=== PATIENT | female | born 1955 | race Caucasian/White ===

== ENCOUNTER → 2016-07-16 | Outpatient (CLI) | payer OTHER ==
--- NOTE | 2016-07-16 10:42 | RAD ---
EXAM DESCRIPTION: Left foot series. CLINICAL HISTORY: Left foot pain. COMPARISON: None. TECHNIQUE: Three views were submitted for evaluation. FINDINGS: No fracture, dislocation, or suspicious radiopaque foreign body is seen. Soft tissues are unremarkable. IMPRESSION: Large plantar spur noted along with vascular calcifications. No evidence of fracture. Electronically signed by: Abhijeet Cuadra MD 07/16/2016 10:40
== END ==
LOC: RAD 09:40
PROVIDERS: ATTEND Orthopaedic Surgery
DX: S90.32XA Contusion of left foot, initial encounter (principal); M77.52 Other enthesopathy of left foot and ankle

== ENCOUNTER → 2016-10-17 | Outpatient (CLI) | payer SELFPAY ==
--- NOTE | 2016-10-18 17:09 | MRI ---
EXAM DESCRIPTION: MRI left foot CLINICAL HISTORY: Forefoot pain radiating into the toes. Pain when walking. Horse stepped on the foot 4 months ago COMPARISON: None. TECHNIQUE: Multiplanar, multisequence MR images of the left foot FINDINGS: Grade 4 chondrosis along the proximal lateral joint line of the medial cuneiform at the navicular cuneiform articulation. Full-thickness chondrosis and subchondral cystic change with edema. There is a tiny focus of cystic change and edema in the adjacent dorsal navicular. Small region of marginal chondrosis, and subchondral cystic change with edema along the plantar distal medial cuneiform at its articulation with the base of the first metatarsal. Approximate measurement 10 x 5 mm. No osteochondral lesion of the metatarsal. No osteochondral lesion tarsometatarsal, metatarsophalangeal or interphalangeal Midfoot interosseous ligaments are intact No fracture of the bones the foot No tenosynovitis. Intrinsic muscles of the foot are normal. No periarticular or soft tissue solid or cystic mass IMPRESSION: Grade 4 chondrosis along the margin of the proximal medial cuneiform. Mild subchondral cystic change and edema. Tiny focus of edema in the dorsal navicular Small region of marginal cystic change and edema distal plantar aspect of the medial cuneiform at the first tarsometatarsal joint No fracture of the foot Electronically signed by: Wali Majano MD 10/18/2016 2:13 PM CDT
== END ==
LOC: MRI 12:51
PROVIDERS: ATTEND Orthopaedic Surgery
DX: S92.302D Fracture of unspecified metatarsal bone(s), left foot, subsequent encounter for fracture with routine healing (principal)

== ENCOUNTER → 2017-02-26 | Outpatient (CLI) | payer SELFPAY ==
--- NOTE | 2017-02-27 09:03 | RAD ---
EXAM DESCRIPTION: Ankle,Left 3 Views CLINICAL HISTORY: 62 years, Female, LOCALIZED PRIMARY OSTEOARTHRITIS OF THE ANKLE AND OR FOOT COMPARISON: None. TECHNIQUE: AP/lateral/oblique of the ankle of the left ankle FINDINGS: No fracture, dislocation, or disruption of the ankle mortice is present. The bones are normally mineralized and without significant degenerative disease. No soft tissue abnormalities are noted. IMPRESSION: 1. Normal left ankle three views Electronically signed by: Wali Guzman MD 02/27/2017 9:01 AM CDT
--- NOTE | 2017-02-27 09:05 | RAD ---
EXAM DESCRIPTION: Foot,Left 3 Views CLINICAL HISTORY: 62 years, Female, LOCALIZED PRIMARY OSTEOARTHRITIS OF THE ANKLE AND OR FOOT COMPARISON: July 16, 2016 TECHNIQUE: AP, lateral, and oblique views of the left foot FINDINGS: Calcaneal spurring at the plantar arch origin is noted with extensive vascular calcification. Very little degenerative change otherwise is noted. No fracture or dislocation is seen. No stress injuries are noted. IMPRESSION: Extensive vascular calcification with otherwise negative study. Electronically signed by: Wali Guzman MD 02/27/2017 9:03 AM CDT
== END | disposition home or self-care (01) ==
LOC: RAD 11:20
PROVIDERS: ATTEND Orthopaedic Surgery
DX: M19.072 Primary osteoarthritis, left ankle and foot (principal)

== ENCOUNTER → 2017-07-09 | Outpatient (CLI) | payer SELFPAY | END | disposition home or self-care (01) | LOC: LAB.O 12:48 | PROVIDERS: ATTEND Physician Assistant | DX: R05 Cough (principal) ==

== ENCOUNTER → 2018-06-23 | Outpatient (CLI) | payer MEDICARE, OTHER | LOC: GMAM 11:42 | PROVIDERS: ATTEND Family Medicine | DX: E03.9 Hypothyroidism, unspecified (principal); E55.9 Vitamin D deficiency, unspecified ==

== ENCOUNTER 2018-09-26 10:29 | Inpatient (IN) | payer MEDICARE, OTHER ==
[2018-09-26] MEDS ORDERED: SODIUM CHLORIDE 0.9% (FLUSH) 10 ML SYG IV PRN (10:55)
[2018-09-26] MEDS ORDERED: SODIUM CHLORIDE 0.9% 1000ML 1,000 ML IVS ONE (11:48)
[2018-09-26] MEDS ORDERED: ONDANSETRON INJ 4 MG/2 ML VIAL IV ONE (11:49)
[2018-09-26] MEDS ORDERED: INSULIN, REG.(HUMAN) 100 U/ML VIAL IV ONE ×2 (11:51→23:30)
--- NOTE | 2018-09-26 11:55 | ED.PDOC ---
History of Present Illness - General Chief Complaint: GI Problem Stated Complaint: vomiting and diarrhea Time Seen by Provider: 09/26/18 11:48 Information Source: patient - History of Present Illness Initial Comments: PT PRESENTS TO THE ED WITH COMPLAINT OF "STOMACH FLU". PT STATES SHE HAS HAD NAUSEA, VOMITING, AND LOOSE STOOL FOR THE PAST 4 DAYS ASSOCIATED WITH INTERMITTENT EPIGASTRIC ABDOMINAL PAIN. PT DENIES, FEVER, CHILLS. Pain Radiation: no radiation Quality: moderate, cramping, intermittent Improving Factors: nothing Worsening Factors: nothing Associated Symptoms: diarrhea, nausea/vomiting Review of Systems - Review of Systems Constitutional: Denies: chills, fever EENTM: Denies: nose congestion, throat pain Respiratory: Denies: cough, short of breath Cardiology: Denies: chest pain, palpitations Gastrointestinal/Abdominal: States: see HPI, abdominal pain, diarrhea, nausea, vomiting Genitourinary: Denies: dysuria, frequency Musculoskeletal: Denies: joint pain, joint swelling Skin: Denies: change in color, dryness Endocrine: States: no symptoms reported Hematologic/Lymphatic: States: no symptoms reported Past Medical History (General) - Patient Medical History Hx Seizures: No Hx Stroke: No Hx Dementia: No Hx Asthma: No Hx Cardiac Disorders: Yes - stent x 2 Hx Congestive Heart Failure: No Hx Pacemaker: No Hx Hypertension: Yes Hx Thyroid Disease: No Hx Diabetes: Yes Hx Gastroesophageal Reflux: Yes Hx Renal Disease: No Hx Cancer: No Hx of HIV: No Hx Hepatitis C: No Hx MRSA: No Surgical History: appendectomy - Vaccination History Hx Tetanus, Diphtheria Vaccination: No Hx Influenza Vaccination: No Hx Pneumococcal Vaccination: No - Social History Hx Tobacco Use: No Hx Chewing Tobacco Use: No Hx Alcohol Use: No Hx Substance Use: No Hx Substance Use Treatment: No Hx Depression: Yes Hx Physical Abuse: No Hx Emotional Abuse: No Hx Suspected Abuse: No - Female History Patient : No Family Medical History - Family History Mother Family History: Unknown Physical Exam - Physical Exam General Appearance: Alert, Obvious distress, Well Groomed, Well Nourished Eyes, Ears, Nose, Throat Exam: PERRL/EOMI Neck: full range of motion, supple, normal inspection Respiratory: lungs clear, normal breath sounds, no respiratory distress Cardiovascular/Chest: regular rate, rhythm, no murmur Gastrointestinal/Abdominal: normal bowel sounds, soft, tenderness - EPIGASTRIC REGION Neurologic: alert, other - SLOW TO RESPOND, ANSWERS QUESTIONS APPROPRIATELY Skin Exam: warm/dry, pallor Progress - Progress Progress: 09/26/18 13:46 PT RESTING COMFORTABLY ON RE-EVAL. LABS DIAGNOSTICS AND PLAN DISCUSSED WITH PT AND FAMILY AT BEDSIDE. - Results/Orders Results/Orders: Laboratory Tests 09/26/18 09/26/18 09/26/18 11:00 11:00 11:00 WBC 23.8 H* RBC 4.15 L Hgb 11.6 L Hct 36.0 MCV 86.7 MCH 27.9 MCHC 32.1 L RDW 13.3 Plt Count 193 MPV 9.8 Absolute Neuts (auto) Not Reportable Absolute Lymphs (auto) Not Reportable Absolute Monos (auto) Not Reportable Absolute Eos (auto) Not Reportable Neutrophils % Not Reportable Neutrophils % (Manual) 62.0 Lymphocytes % Not Reportable Lymphocytes % (Manual) 18.0 Monocytes % Not Reportable Monocytes % (Manual) 18.0 Eosinophils % Not Reportable Basophils % Not Reportable Band Neutrophils Eosinophils 2.0 Basophils Metamyelocytes Myelocytes Promyelocytes Nucleated RBCs Differential Comment Hypersegmented Polys Blast Cells Plasma Cells Other Cell Type Hypochromia Toxic Granulation Dohle Bodies Tasha Rods Platelet Estimate Normal Normal RBC Morphology Normal rbc morph Polychromasia Poikilocytosis Basophilic Stippling Anisocytosis Microcytosis Macrocytosis Spherocytes Sickle Cells Target Cells Ovalocytes Stomatocytes Helmet Cells Arriaga-Maceo Bodies [place] Rings Torres Cells Acanthocytes (Spur) Rouleaux Schistocytes RBC Morph Comment PUBS Tear Drop Cells Sodium 128 L Potassium 4.6 Chloride 92 L Carbon Dioxide 20 L Anion Gap 20.6 H BUN 44 H Creatinine 1.70 H BUN/Creatinine Ratio 25.9 H Random Glucose 576 H* Serum Osmolality 294.2 Lactic Acid Calcium 8.8 Total Bilirubin 0.9 Direct Bilirubin 0.1 Indirect Bilirubin 0.8 AST 22 ALT 15 Alkaline Phosphatase 73 Serum Total Protein 6.7 Albumin 3.3 Amylase 12 L Lipase 18 L Urine Color Urine Appearance Urine pH Ur Specific [place] Urine Protein Urine Glucose (UA) Urine Ketones Urine Blood Urine Nitrite Urine Bilirubin Urine Urobilinogen Ur Leukocyte Esterase Urine RBC Urine WBC Ur Epithelial Cells Urine Bacteria 09/26/18 09/26/18 09/26/18 11:00 12:14 13:20 WBC RBC Hgb Hct MCV MCH MCHC RDW Plt Count MPV Absolute Neuts (auto) Absolute Lymphs (auto) Absolute Monos (auto) Absolute Eos (auto) Neutrophils % Neutrophils % (Manual) Cancelled Lymphocytes % Lymphocytes % (Manual) Cancelled Monocytes % Monocytes % (Manual) Cancelled Eosinophils % Basophils % Band Neutrophils Cancelled Eosinophils Cancelled Basophils Cancelled Metamyelocytes Cancelled Myelocytes Cancelled Promyelocytes Cancelled Nucleated RBCs Cancelled Differential Comment Cancelled Hypersegmented Polys Cancelled Blast Cells Cancelled Plasma Cells Cancelled Other Cell Type Cancelled Hypochromia Cancelled Toxic Granulation Cancelled Dohle Bodies Cancelled Tasha Rods Cancelled Platelet Estimate Cancelled Normal RBC Morphology Cancelled Polychromasia Cancelled Poikilocytosis Cancelled Basophilic Stippling Cancelled Anisocytosis Cancelled Microcytosis Cancelled Macrocytosis Cancelled Spherocytes Cancelled Sickle Cells Cancelled Target Cells Cancelled Ovalocytes Cancelled Stomatocytes Cancelled Helmet Cells Cancelled Arriaga-Maceo Bodies Cancelled [place] Rings Cancelled [place] Cells Cancelled Acanthocytes (Spur) Cancelled Rouleaux Cancelled Schistocytes Cancelled RBC Morph Comment Cancelled PUBS Tear Drop Cells Cancelled Sodium Potassium Chloride Carbon Dioxide Anion Gap BUN Creatinine BUN/Creatinine Ratio Random Glucose Serum Osmolality Lactic Acid 1.6 Calcium Total Bilirubin Direct Bilirubin Indirect Bilirubin AST ALT Alkaline Phosphatase Serum Total Protein Albumin Amylase Lipase Urine Color Yellow Urine Appearance Cloudy Urine pH 5.5 Ur Specific [place] <= 1.005 Urine Protein 100 H Urine Glucose (UA) 500 H Urine Ketones 40 H Urine Blood Moderate H Urine Nitrite Negative Urine Bilirubin Negative Urine Urobilinogen 0.2 Ur Leukocyte Esterase Trace H Urine RBC 20-30 H Urine WBC 30-40 H Ur Epithelial Cells 0 Urine Bacteria 1+ - EKG/XRAY/CT EKG: Sinus, Tachy - 107, NL INTERVALS, NL AXIS, no ST T wave changes - NO OLD EK G FOR COMPARISON Departure - Departure Clinical Impression: Sepsis, UTI (urinary tract infection), Hyperglycemia, Acute kidney failure, Dehydration, Nausea and vomiting Time of Disposition: 13:48 Disposition: Discharge to Home or Self Care Condition: Poor Departure Forms: ED Discharge - Pt. Copy, Patient Portal Self Enrollment Referrals: Wali Mauricio MD [Primary Care Provider] - 1-2 Weeks Home Medications: Ambulatory Orders ALPRAZolam [Xanax] 0.5 mg PO 12/31/14 Amlodipine Besylate-Valsartan [Exforge 5-320 mg] 5 - 320 mg PO DAILY 12/31/14 Aspirin [Aspirin Childrens] 12/31/14 B-Complex Vitamins [B Complex] 1 cap PO 12/31/14 Celecoxib [Celebrex] 200 mg PO 12/31/14 Citracal Plus 12/31/14 Cymbalta 60 mg PO DAILY 12/31/14 Esomeprazole Magnesium [Nexium] 40 mg PO 12/31/14 Ezetimibe [Zetia] 10 mg PO 12/31/14 Humalog 12/31/14 Lantus 22 unit SC BID 12/31/14 Levothyroxine Sodium [Synthroid] 50 mcg PO 12/31/14 Metformin HCl [Glucophage] 500 mg PO 12/31/14 Progesterone 100 mg PO DAILY 12/31/14 Raloxifene HCl [Evista] 60 mg PO 12/31/14 Zolpidem Tartrate [Ambien] 10 mg PO 12/31/14 Critical Care Note - Critical Care Note Total Time (mins): 45 Decision To Admit - Decistion To Admit Decision to Admit Reason: Admit from ER Decision to Admit Date: 09/26/18 Decision to Admit Time: 13:49 - CASE DISCUSSED WITH VICKI ALEJANDRO NP WHO AGREES TO ADMIT
[2018-09-26] MEDS ORDERED: ACETYLCYSTEINE IVPB ONE (12:03)
[2018-09-26] MEDS ORDERED: DEXTROSE 5% IVPB ONE (12:03)
[2018-09-26] MEDS ORDERED: DEXTROSE 5% 250ML 250 ML ONE (12:30)
[2018-09-26] MEDS ORDERED: ACETYLCYSTEINE INJECTION 200 MG/ML VIAL IVPB ONE (12:30)
[2018-09-26] MEDS ORDERED: ACETAMINOPHEN 500 MG TAB PO ONE (12:59)
[2018-09-26] MEDS ORDERED: cefTRIAXone SODIUM 2 GM in SODIUM CHL 0.9% 100ML MINI-BAG 100 ML IVPB ONE (12:59)
--- NOTE | 2018-09-26 13:16 | RAD ---
EXAM DESCRIPTION: Chest,1 View CLINICAL HISTORY: 63 years Female, POSSIBLE SEPSIS COMPARISON: Chest radiograph 01/30/2009. TECHNIQUE: Single frontal view of the chest. IMPRESSION: Cardiac silhouette is normal in size. No lobar consolidation present. No pleural effusion or pneumothorax. Thoracic spondylosis. Electronically signed by: Joe Pate MD 09/26/2018 1:12 PM CDT
[2018-09-26] MEDS ORDERED: SODIUM CHL 0.9% 100ML MINI-BAG 100 ML IVPB ONE (13:49)
--- NOTE | 2018-09-26 14:26 | CT ---
Study: CT abdomen and pelvis. Indication: DIFFUSE ABD PAIN Technique: Venous phase CT imaging of the abdomen and pelvis obtained after intravenous administration of contrast. This exam was performed according to our departmental dose-optimization program, which includes automated exposure control, adjustment of the mA and/or kV according to patient size and/or use of iterative reconstruction technique. Comparison: None. Findings: Lower chest, liver, gallbladder, pancreas, spleen, adrenal glands, bladder, uterus, and bilateral adnexa unremarkable. Moderate bilateral perinephric stranding, right greater than left. There is inflation of the right renal collecting system as well. These changes can indicate pyelonephritis. Minimal dilatation of the right renal collecting system and ureter. No definite obstructing stone identified. Colonic diverticulosis. Appendix not visualized. Tiny hiatal hernia. Small bowel unremarkable. Appendix not definitively visualized. No free fluid. No free air. No pathologically enlarged lymphadenopathy. Atherosclerosis aorta. Degenerative changes of the spine noted. Impression: Findings of the bilateral kidneys concerning for pyelonephritis. Correlation with urinalysis and urine cultures recommended. Minimal dilatation of the right renal collecting system and ureter which could relate to a recently passed stone. No obstructing stone is however visualized. Additional findings as above. Electronically signed by: Brian Edwards MD 09/26/2018 2:22 PM CDT
--- NOTE | 2018-09-26 17:09 | HP ---
SUPERVISING PHYSICIAN: Wali Mauricio MD CHIEF COMPLAINT: Nausea and vomiting. HISTORY OF PRESENT ILLNESS: This is a 63-year-old patient who has had some nausea and vomiting and just feeling poorly since last Saturday. She also had some extreme weakness that just continued to worsen. She thought she had a stomach flu and at one point, she even had some mild diarrhea, but that has stopped in the last day or so. She also chills and fever with intermittent epigastric pain. She got so sick today that her brought her to the hospital. In the Emergency Room, her vital signs initially showed a temperature 102. Heart rate 105, blood pressure 171/74. Later, it did come down to 112/40. Her O2 saturation was 96% with respiratory rate 20. Lab showed WBC 23,800 with hemoglobin 11.6, hematocrit 36. Sodium 128, potassium 4.6, chloride 92, carbon dioxide 20, anion gap 20.6, BUN 44, creatinine 1.7. Random glucose was 576, lactic acid 1.6, amylase 12, lipase 18. Blood gas was unremarkable. Urinalysis showed 100 urine protein, 500 urine glucose, 40 urine ketones, moderate urine blood, trace of leukocyte esterase, 20 to 30 urine RBCs and 30 to 40 urine WBCs. Blood cultures were drawn, the patient was given fluids as well as worked up and chest x-ray shows cardiac silhouette normal in size, no lobar consolidations present, no pleural effusion or pneumothorax, thoracic spondylosis. Her abdominal and pelvis CT showed findings of bilateral kidneys concerning for pyelonephritis, minimal dilation of the right renal collecting system and ureter which could relate to a recently passed stone. No obstructing stone is visualized, however. She was also given some antinausea medicine as well as 7 units of Humalog insulin. I was called for hospital admission. PAST MEDICAL HISTORY: 1. Coronary artery disease with [address] Hernandez. 2. Hypertension. 3. Gastroesophageal reflux disease. 4. Peripheral neuropathy due to diabetes. 5. Type 1 diabetes. 6. Hypothyroidism. PAST SURGICAL HISTORY: 1. Appendectomy. 2. Coronary artery disease removal, bilateral. 3. Breast augmentation. 4. . 5. Bilateral tubal ligation. 6. Cardiac cath x4 with stent placements. 7. Trigger finger release. 8. Right acromioclavicular shoulder surgery. 9. Bilateral carpal tunnel release. OUTPATIENT MEDICATIONS: Per the EMR and awaiting verification. ALLERGIES: CODEINE, STATINS, WASP STINGS, HYDROCODONE. SOCIAL HISTORY: She lives in [place]. She is . She has one child. She denies smoking, ETOH or illicit drug use. REVIEW OF SYSTEMS: GENERAL: Positive fever, fatigue, chills. Negative for weight changes. HEENT: Negative for sinus symptoms, ear pain or sore throat. RESPIRATORY: Negative for wheezing, coughing or shortness of breath. CARDIAC: Negative for chest pain, palpitations or tachycardia. GASTROINTESTINAL: Positive for abdominal pain, nausea with mild vomiting and diarrhea, as per history of present illness. GENITOURINARY: Negative for hematuria, dysuria. MUSCULOSKELETAL: Negative for arthralgias, myalgias. SKIN: Negative for lesions or rashes. NEUROLOGIC: Positive for mild headaches and weakness. Negative for seizures. PHYSICAL EXAMINATION: VITAL SIGNS: Temperature 98.3. Heart rate 72. Blood pressure 113/63. Respiratory rate 18. O2 saturation 100% on 2 liters. GENERAL: This is a 63-year-old female patient laying in her hospital bed. She is in no acute distress although she does have noticeable chills at times. HEENT: Normocephalic, atraumatic. Pupils are equal and reactive. Oropharynx is clear. NECK: Supple without mass. RESPIRATORY: Essentially clear to auscultation bilaterally. CHEST: There is equal rise and fall of the chest with inspiration and expiration. CARDIOVASCULAR: Regular rate and rhythm. GASTROINTESTINAL: Abdomen is soft, nondistended, nontender. Bowel sounds are positive. EXTREMITIES: No cyanosis, clubbing or edema. BACK: She does have bilateral CVA tenderness. NEUROLOGIC: Awake, alert and oriented times three. LABORATORY: Labs and films are as per history of present illness. IMPRESSION: 1. Sepsis due to pyelonephritis with admitting temperature of 102, heart rate 105 and WBC of 23,800. 2. Acute kidney failure with creatinine of 1.7. Her baseline creatinine is about 1. 3. Hyperglycemia in a type 1 diabetic, most likely secondary to her infection, elevated temperature, nausea and vomiting. 4. History of coronary artery disease with cardiac stents. 5. Type 1 diabetes mellitus on insulin therapy. 6. Hypertension. 7. Hyperlipidemia. 8. Hypothyroidism on supplementation. 9. Mild anxiety and depression. PLAN: We will admit the patient to the hospital. We will continue fluids overnight. I will continue the Rocephin as she received in the Emergency Room. We will monitor cultures closely. She complained of a headache and instead of giving her her typical NSAIDs, we will hold on those for now until her kidney function improves and I will order some tramadol as well as some Xanax. She is on a proton pump inhibitor for ulcer prophylaxis, Lovenox for DVT prophylaxis. I have ordered labs for in the morning. Home medications will be restarted as soon as they are verified. We will continue to monitor the patient closely and follow as needed. #[id number] MTDD
[2018-09-26] MEDS ORDERED: ONDANSETRON INJ 4 MG/2 ML VIAL IV PRN (17:15)
[2018-09-26] MEDS ORDERED: DEXTROSE 50% 25 GM/50 ML SYG IV PRN (17:19)
[2018-09-26] MEDS ORDERED: GLUCAGON INJ 1 MG VIAL SUBCU PRN (17:19)
[2018-09-26] MEDS: SODIUM CHLORIDE 0.9% 1000ML 1,000 ML IVS PRN (21:08)
[2018-09-26] MEDS ORDERED: ALPRAZolam 0.25 MG TAB PO PRN (21:28)
[2018-09-26] MEDS ORDERED: INSULIN, REG.(HUMAN) 100 U/ML VIAL SUBCU ONE (21:54)
[2018-09-26] MEDS: SODIUM CHLORIDE 0.9% (FLUSH) 10 ML SYG IV SCH (22:05)
[2018-09-26] MEDS: ENOXAPARIN SODIUM 30 MG/0.3 ML SYG SUBCU SCH (22:05)
[2018-09-26] MEDS: ALPRAZolam 0.5 MG TAB PO SCH (22:06)
[2018-09-26] MEDS: INSULIN LISPRO 100 UNITS/ML PEN SUBCU SCH (22:07)
[2018-09-26] MEDS: IV SET AND CAP CHANGE INJ INJ SCH (22:10)
[2018-09-27] MEDS ORDERED: tiZANidine 4 MG TAB PO PRN (00:30)
[2018-09-27] MEDS ORDERED: INSULIN LISPRO 100 UNITS/ML PEN SUBCU ONE (01:28)
[2018-09-27] MEDS: PANTOPRAZOLE SODIUM IV 40 MG VIAL IV SCH (06:33)
[2018-09-27] MEDS: LEVOTHYROXINE SODIUM 0.025 MG TAB PO SCH (06:34)
[2018-09-27] MEDS: SODIUM CHLORIDE 0.9% 1000ML 1,000 ML IVS PRN ×2 (06:55→17:35)
[2018-09-27] MEDS: INSULIN LISPRO 100 UNITS/ML PEN SUBCU SCH ×4 (07:49→21:12)
[2018-09-27] MEDS ORDERED: SODIUM CHL 0.9% 50ML MIN-BAG+ 50 ML IVPB ONE ×4 (08:00→19:11)
[2018-09-27] MEDS ORDERED: cefTRIAXone SODIUM 1 GM VIAL ONE (08:01)
[2018-09-27] MEDS: amLODIPine BESYLATE 5 MG TAB PO SCH ×2 (08:33→08:39)
[2018-09-27] MEDS: cefTRIAXone SODIUM 1 GM in SODIUM CHL 0.9% 50ML MIN-BAG+ 50 ML IVPB SCH (08:33)
[2018-09-27] MEDS: VALSARTAN 80 MG TAB PO SCH ×2 (08:33→08:53)
[2018-09-27] MEDS: SODIUM CHLORIDE 0.9% (FLUSH) 10 ML SYG IV SCH ×2 (08:34→20:51)
[2018-09-27] MEDS: traMADol HCL 50 MG TAB PO PRN ×2 (08:57→11:00)
[2018-09-27] MEDS ORDERED: VALSARTAN PO SCH (09:00)
[2018-09-27] MEDS ORDERED: [UNRECOGNIZED DRUG - OTHER] PO SCH (09:00)
[2018-09-27] MEDS ORDERED: AMLODIPINE BESYLATE PO SCH (09:00)
[2018-09-27] MEDS ORDERED: MEROPENEM 500 MG VIAL IVPB ONE ×3 (10:55→19:11)
[2018-09-27] MEDS: INSULIN DEGLUDEC 14 UNIT SC SCH (10:59)
[2018-09-27] MEDS: MEROPENEM 500 MG in SODIUM CHL 0.9% 50ML MIN-BAG+ 50 ML IVPB SCH ×2 (11:01→17:57)
[2018-09-27] MEDS: ALPRAZolam 0.5 MG TAB PO SCH (20:50)
[2018-09-27] MEDS: ENOXAPARIN SODIUM 30 MG/0.3 ML SYG SUBCU SCH (20:50)
[2018-09-27] MEDS: ZOLPIDEM TARTRATE 12.5 MG PO SCH (20:51)
[2018-09-27] MEDS: ONDANSETRON INJ 4 MG/2 ML VIAL IV PRN (20:51)
[2018-09-27] MEDS: VORTIOXETINE HBR 20 MG PO SCH (21:14)
[2018-09-28] MEDS: SODIUM CHLORIDE 0.9% 1000ML 1,000 ML IVS PRN (02:53)
[2018-09-28] MEDS: MEROPENEM 500 MG in SODIUM CHL 0.9% 50ML MIN-BAG+ 50 ML IVPB SCH ×3 (02:53→18:03)
[2018-09-28] MEDS: LEVOTHYROXINE SODIUM 0.025 MG TAB PO SCH (06:09)
[2018-09-28] MEDS: PANTOPRAZOLE SODIUM IV 40 MG VIAL IV SCH (06:09)
[2018-09-28] MEDS ORDERED: MEROPENEM 500 MG VIAL IVPB ONE ×3 (07:18→20:25)
[2018-09-28] MEDS ORDERED: cefTRIAXone SODIUM 1 GM VIAL ONE (07:18)
[2018-09-28] MEDS ORDERED: SODIUM CHL 0.9% 50ML MIN-BAG+ 50 ML IVPB ONE ×4 (07:18→20:24)
[2018-09-28] MEDS: INSULIN LISPRO 100 UNITS/ML PEN SUBCU SCH ×4 (07:32→21:25)
[2018-09-28] MEDS: amLODIPine BESYLATE 5 MG TAB PO SCH (08:22)
[2018-09-28] MEDS: cefTRIAXone SODIUM 1 GM in SODIUM CHL 0.9% 50ML MIN-BAG+ 50 ML IVPB SCH (08:22)
[2018-09-28] MEDS: VALSARTAN 80 MG TAB PO SCH (08:22)
[2018-09-28] MEDS: INSULIN DEGLUDEC 14 UNIT SC SCH (08:22)
[2018-09-28] MEDS: SODIUM CHLORIDE 0.9% (FLUSH) 10 ML SYG IV SCH ×2 (08:38→21:01)
--- NOTE | 2018-09-28 09:41 | PN ---
SUPERVISING PHYSICIAN: Wali Mauricio MD DATE: 09/27/18 SUBJECTIVE: The patient is sitting up in bed, her is at the bedside. She still feels quite ill but is somewhat improved since yesterday. We discussed her lab work and that I was adding an additional antibiotic. She was also cautioned not to use her own medications as she had used several medications overnight that were her own and did not talk to nursing. She understands that she has to allow the nurses to give her pills. Otherwise ,no complaints of nausea, vomiting, diarrhea or constipation. Although she says she is not nauseated, she does state she gets "queasy" but has had no emesis. OBJECTIVE: VITAL SIGNS: Temperature 98.2, she has been afebrile other than in the Emergency Room. Heat rate 65, blood pressure 136/70, respiratory rate 18, 02 saturation 97% on 2 liters nasal cannula. Respiratory is essentially clear to auscultation bilaterally. CARDIAC:: Regular rate and rhythm. GI: Abdomen soft, nondistended, non-tender. Bilateral CVA tenderness is very mild. NEURO: She is awake, alert, and oriented x3. LABORATORY: WBC 31,200 with hemoglobin of 9.9, hematocrit 30.5. She does have 21 bands. Blood sugars have run between 212 and 648 but she has not had her long-acting insulin. She was given insulin last night and her blood sugars have slowly improved. Sodium is slightly low at 132 with a potassium of 4.1, chloride 99, carbon dioxide 23, BUN 62, creatinine 1.89, calcium 7.9, magnesium 2.3. Urine culture is pending. Preliminary blood cultures show no growth after 24 hours. All other labs and films have been reviewed via the EMR. ASSESSMENT: 1. Sepsis due to pyelonephritis with admitting temperature of 102, heart rate 105 and WBC of 23,800. Today, her WBCs are greater than 32,000, she has 21 bands, although she has been afebrile and her heart rate has been within normal limits. 2. Acute kidney failure with creatinine of 1.7 on admission. It has increased to 1.86 today. Her baseline creatinine is about 1. 3. Hyperglycemia in a type 1 diabetic, most likely secondary to her infection, elevated temperature, nausea and vomiting. 4. History of coronary artery disease with cardiac stents. 5. Type 1 diabetes mellitus on insulin therapy. 6. Hypertension. 7. Hyperlipidemia. 8. Hypothyroidism on supplementation. 9. Mild anxiety and depression. PLAN: We will continue present supportive care. She will continue with her fluids again overnight, hopefully will improve her kidney function. We will continue the Rocephin and add Merrem although she is clinically slightly improved. I cautioned her against using her own medications as well as no NSAIDS until her creatinine improves. We have restarted her Tarceva and I will recheck her labs in the morning. She will need an ultrasound of her kidneys as soon as the Apportable is available. We will continue to monitor closely and follow as needed. #[id number] [facility]
--- NOTE | 2018-09-28 13:23 | PN ---
DATE: 09/28/18 SUPERVISING PHYSICIAN: Wali Mauricio M.D. SUBJECTIVE: The patient is sitting up in her bed. Her is at the bedside. She still feels quite weak but has improved since yesterday. I discussed her lab results. She denies any shortness of breath, nausea, vomiting, diarrhea, constipation or chest pain. OBJECTIVE: VITAL SIGNS: Temperature 99.5, T max 24 hours is 100, heart rate 74, blood pressure 120/70, respiratory rate 14, O2 sat 96% on room air. RESPIRATORY: Essentially clear to auscultation bilaterally. CARDIAC: Regular rate and rhythm. GASTROINTESTINAL: Abdomen is soft, nondistended, non-tender. Bowel sounds are positive. There is no CVA tenderness at this time. NEUROLOGIC: She is awake, alert and oriented times three. LABORATORY: WBCs have improved to 17,200 with hemoglobin 9.9, hematocrit 30.2. There is no left shift on differential. Sodium is slightly low at 132, calcium 7.4. The remainder of her electrolytes are basically within normal limits. Creatinine has improved to 1.44. Blood sugars have run between 212 and 273. Urine culture is pending. Preliminary blood cultures show no growth after 24 hours. All other labs and films have been reviewed via the EMR. ASSESSMENT: 1. Sepsis due to pyelonephritis with admitting temperature of 102, heart rate 105 and WBC of 23,800. Her WBCs went up to 32,000 with 21 bands, but today it has improved. Her white count is 17,200. 2. Acute kidney failure with creatinine of 1.7 on admission. It increased to 1.86. Today it is 1.44. 3. Hyperglycemia in a type 1 diabetic, most likely secondary to her infection, elevated temperature, nausea and vomiting. 4. History of coronary artery disease with cardiac stents. 5. Type 1 diabetes mellitus on insulin therapy. 6. Hypertension. 7. Hyperlipidemia. 8. Hypothyroidism on supplementation. 9. Mild anxiety and depression. PLAN: We will continue present supportive care. I have discontinued her fluids and repeated her lab in the morning. Will continue with Rocephin and Merrem and monitor cultures as they become available. Her CT scan demonstrated that she may have passed a renal stone prior to the scan, so I will do a kidney sonogram in the morning for further assessment. I have encouraged good pulmonary hygiene. I have encouraged her to get up and walk around as much as possible as well as increase her fluids. Will continue to monitor closely and follow as needed. #[id number] MTDD
[2018-09-28] MEDS ORDERED: ALUM & MAG HYDROX-SIMETHICONE 30 ML UD ONE (13:29)
[2018-09-28] MEDS ORDERED: ALUM & MAG HYDROX-SIMETHICONE 30 ML UD PO PRN (13:33)
[2018-09-28] MEDS: ACETAMINOPHEN 325 MG TAB PO PRN (15:33)
[2018-09-28] MEDS: ENOXAPARIN SODIUM 30 MG/0.3 ML SYG SUBCU SCH (20:59)
[2018-09-28] MEDS: VORTIOXETINE HBR 20 MG PO SCH (20:59)
[2018-09-28] MEDS: ALPRAZolam 0.5 MG TAB PO SCH (21:00)
[2018-09-28] MEDS: ZOLPIDEM TARTRATE 12.5 MG PO SCH (21:01)
[2018-09-28] MEDS: DOCUSATE SODIUM 100 MG CAP PO SCH (21:10)
[2018-09-28] MEDS: SODIUM CHLORIDE 0.9% (FLUSH) 10 ML SYG IV PRN (22:57)
[2018-09-28] MEDS: ONDANSETRON INJ 4 MG/2 ML VIAL IV PRN (22:57)
[2018-09-29] MEDS: MEROPENEM 500 MG in SODIUM CHL 0.9% 50ML MIN-BAG+ 50 ML IVPB SCH (02:39)
[2018-09-29] MEDS: PANTOPRAZOLE SODIUM IV 40 MG VIAL IV SCH (06:02)
[2018-09-29] MEDS: SODIUM CHLORIDE 0.9% (FLUSH) 10 ML SYG IV PRN (06:02)
[2018-09-29] MEDS: LEVOTHYROXINE SODIUM 0.025 MG TAB PO SCH (06:03)
[2018-09-29] MEDS: INSULIN LISPRO 100 UNITS/ML PEN SUBCU SCH ×4 (06:56→21:14)
[2018-09-29] MEDS ORDERED: SODIUM CHL 0.9% 50ML MIN-BAG+ 50 ML IVPB ONE (08:21)
[2018-09-29] MEDS ORDERED: cefTRIAXone SODIUM 1 GM VIAL ONE (08:22)
[2018-09-29] MEDS: VALSARTAN 80 MG TAB PO SCH (08:30)
[2018-09-29] MEDS: DOCUSATE SODIUM 100 MG CAP PO SCH ×2 (08:31→20:41)
[2018-09-29] MEDS: amLODIPine BESYLATE 5 MG TAB PO SCH (08:32)
[2018-09-29] MEDS: INSULIN DEGLUDEC 14 UNIT SC SCH (08:33)
[2018-09-29] MEDS: SODIUM CHLORIDE 0.9% (FLUSH) 10 ML SYG IV SCH ×2 (08:34→20:42)
[2018-09-29] MEDS: cefTRIAXone SODIUM 1 GM in SODIUM CHL 0.9% 50ML MIN-BAG+ 50 ML IVPB SCH (08:34)
[2018-09-29] MEDS ORDERED: MAGNESIUM HYDROXIDE 30 ML UD PO ONE (11:02)
[2018-09-29] MEDS: levoFLOXacin 750MG IV 750 MG in PREMIX BAG 1 BAG IVPB SCH (11:34)
--- NOTE | 2018-09-29 13:44 | US ---
EXAM DESCRIPTION: Renal: Ultrasound. CLINICAL HISTORY: 63 years Female pyelo; nephrolithiasis COMPARISON: Bilateral renal arterial Doppler evaluation on the same visit. TECHNIQUE: Transcutaneous scanning: Two-dimensional and Doppler modes. FINDINGS: Right kidney measures 11.6 x 5.9 x 5.7 cm; mid-renal cortical thickness normal. . Normal echogenicity. No hydronephrosis No echogenic stones. Minimally lobulated contour of the kidney with no perinephric fluid. Normal vascularity. Proximal ureter not visualized. Left kidney measures 11.4 x 5.9 x 5.4 cm; mid-renal cortical thickness normal.. Normal echogenicity. No hydronephrosis. No echogenic stones. Minimally lobulated contour of the kidney with no perinephric fluid. Normal vascularity.. Proximal ureter not visualized. Urinary bladder was visualized. Volume not measured. Ureteral jet in the bladder seen bilaterally by Doppler. Abdominal aorta: not measured. IMPRESSION: 1. Bilateral kidneys are unremarkable. Lobulated contours are physiologic for this patient. 2. Bilateral ureteral jets seen in the urinary bladder by Doppler. Findings were not measured. Abdominal aorta was not evaluated.. Electronically signed by: Nakul Lugo MD 09/29/2018 1:40 PM CDT
[2018-09-29] MEDS: IV SET AND CAP CHANGE INJ INJ SCH (14:00)
[2018-09-29] MEDS: ONDANSETRON INJ 4 MG/2 ML VIAL IV PRN (14:22)
[2018-09-29] MEDS: ALPRAZolam 0.5 MG TAB PO SCH (20:42)
[2018-09-29] MEDS: VORTIOXETINE HBR 20 MG PO SCH (20:42)
[2018-09-29] MEDS: ZOLPIDEM TARTRATE 12.5 MG PO SCH (20:43)
[2018-09-29] MEDS ORDERED: ENOXAPARIN SODIUM 40 MG/0.4 ML SYG SUBCU SCH (21:00)
--- NOTE | 2018-09-29 21:41 | PN ---
DATE: 09/29/18 SUPERVISING PHYSICIAN: Travis Conrad M.D. SUBJECTIVE: The patient notes that she is feeling pretty good this morning. She has had a little bit of nausea but no significant pain. She has had no diarrhea. She said she has a little bit of an issue with constipation although we tried some Milk of Magnesia. She did have a renal ultrasound this morning without any significant findings. OBJECTIVE: VITAL SIGNS: Temperature 98.1, pulse 98, blood pressure 160/64, respirations 18, satting 98% on room air. Weight 63.5 kg. GENERAL: The patient is resting comfortably. Appears to be in no acute distress. She is alert. CHEST: Clear to auscultation. HEART: Regular rate and rhythm. ABDOMEN: Soft, non-tender. Positive bowel sounds. EXTREMITIES: Without any edema. NEUROLOGIC: She is alert and oriented times three. LABORATORY: White count now is down to 12,900, hemoglobin 9.5, hematocrit 29.3, platelet count 194,000. Differential shows now to be without any bands but continues with a left shift. Chemistry shows normal electrolytes with BUN 26, creatinine 1.13. Blood sugars range between 159 and 268. Magnesium 2.0. MICROBIOLOGY: Final culture results of her urine showed pansensitive Escherichia coli and she has 1 positive blood culture that showed a gram negative bacilli with final culture and sensitivity pending. RADIOLOGY: She had a renal ultrasound this morning and per radiology interpretation showed bilateral kidneys are unremarkable. Lobulated contours are physiologic for this patient. There was also note of bilateral ureteral jets seen in the urinary bladder by Doppler. Findings were not measured. The abdominal aorta was not evaluated. Please see that full report for details. ASSESSMENT: 1. Sepsis due to pyelonephritis due to Escherichia coli that is pansensitive with the patient showing initial white count of 23,800, temperature 102 with the patient showing good response to Rocephin and Meropenem, awaiting final blood culture results. 2. Gram negative bacteremia likely secondary to #1 awaiting final culture and sensitivity with the patient being transitioned to Levaquin based off the current culture results of the urine. 3. Acute kidney failure, improving with fluids. 4. Hyperglycemia in a type 1 diabetic, most likely secondary to her infection, elevated temperature, nausea and vomiting. 5. History of coronary artery disease with cardiac stents. 6. Type 1 diabetes mellitus on insulin therapy. 7. Hypertension. 8. Hyperlipidemia. 9. Hypothyroidism on supplementation. 10. Mild anxiety and depression. PLAN: Will await final culture results of the blood culture. Until then will transition the patient to appropriate antibiotic therapy based off current culture results with pansensitive Escherichia coli and therefore start her on Levaquin and renal dose as appropriate. Once we have the final blood culture results in, certainly will target antibiotic therapy as appropriate. She will need at least a 14 day course of antibiotic therapy based off current results. Will anticipate hopefully being able to discharge tomorrow, but will wait until the final culture results are back for the blood cultures. Will continue with insulin sliding scale. She continues on DVT prophylaxis. I have encouraged ambulation and continued fluid. Until we can transition back to outpatient management will need to continue to followup and treat as needed. Once she does transition to outpatient management she will need close followup with her primary care provider, Dr. Mauricio, as well as urology. We may also need to consult with Infectious Diseases with Dr. Romero, but will await final culture results to make that decision. Until then will continue to monitor and treat as needed. #[id number] [facility]
[2018-09-30] MEDS: PANTOPRAZOLE SODIUM IV 40 MG VIAL IV SCH (06:21)
[2018-09-30] MEDS: LEVOTHYROXINE SODIUM 0.025 MG TAB PO SCH (06:21)
[2018-09-30] MEDS: INSULIN LISPRO 100 UNITS/ML PEN SUBCU SCH ×2 (07:50→12:08)
[2018-09-30] MEDS: INSULIN DEGLUDEC 14 UNIT SC SCH (09:07)
[2018-09-30] MEDS: amLODIPine BESYLATE 5 MG TAB PO SCH (09:07)
[2018-09-30] MEDS: VALSARTAN 80 MG TAB PO SCH (09:08)
[2018-09-30] MEDS: SODIUM CHLORIDE 0.9% (FLUSH) 10 ML SYG IV SCH (09:09)
[2018-09-30] MEDS: DOCUSATE SODIUM 100 MG CAP PO SCH (09:09)
[2018-09-30] MEDS: ACETAMINOPHEN 325 MG TAB PO PRN (09:09)
[2018-09-30] MEDS: levoFLOXacin 750MG IV 750 MG in PREMIX BAG 1 BAG IVPB SCH (10:52)
[2018-09-30] MEDS: ONDANSETRON INJ 4 MG/2 ML VIAL IV PRN (12:05)
[2018-09-30 14:08] VITALS: BP 138/69; TEMP 98.3; O2SAT 99
--- NOTE | 2018-10-01 10:59 | DS ---
SUPERVISING PHYSICIAN: ADMISSION DIAGNOSIS: 1. Sepsis due to pyelonephritis with admitting temperature of 102, heart rate 105 and WBC of 23,800. 2. Acute kidney failure with creatinine of 1.7. Her baseline creatinine is about 1. 3. Hyperglycemia in a type 1 diabetic, most likely secondary to her infection, elevated temperature, nausea and vomiting. 4. History of coronary artery disease with cardiac stents. 5. Type 1 diabetes mellitus on insulin therapy. 6. Hypertension. 7. Hyperlipidemia. 8. Hypothyroidism on supplementation. 9. Mild anxiety and depression. DISCHARGE DIAGNOSIS: 1. Sepsis due to pyelonephritis secondary to Escherichia coli that was pansensitive with the patient showing good response to Rocephin and meropenem and transitioned to outpatient management with initially Levaquin and then home on ciprofloxacin. 2. Bacteremia secondary to #1 with same species, Escherichia coli, with pansensitivity with the patient transitioned to outpatient management with Cipro after a 24 hour period of Levaquin. Prior to that, she was on Rocephin and meropenem with the patient improving clinically. 3. Acute kidney failure secondary to #1, back to baseline levels with fluids and treatment. 4. Hyperglycemia in a type 1 diabetic, secondary to her infection, but stable prior to discharge. 5. History of coronary artery disease with cardiac stents. 6. Type 1 diabetes mellitus on insulin therapy. 7. Hypertension. 8. Hyperlipidemia. 9. Hypothyroidism on supplementation. 10. Mild anxiety and depression. REASON FOR HOSPITALIZATION: This is a 63-year-old patient who has had some nausea and vomiting and just feeling poorly since last Saturday. She also had some extreme weakness that just continued to worsen. She thought she had a stomach flu and at one point, she even had some mild diarrhea, but that has stopped in the last day or so. She also chills and fever with intermittent epigastric pain. She got so sick today that her brought her to the hospital. In the Emergency Room, her vital signs initially showed a temperature 102. Heart rate 105, blood pressure 171/74. Later, it did come down to 112/40. Her O2 saturation was 96% with respiratory rate 20. Lab showed WBC 23,800 with hemoglobin 11.6, hematocrit 36. Sodium 128, potassium 4.6, chloride 92, carbon dioxide 20, anion gap 20.6, BUN 44, creatinine 1.7. Random glucose was 576, lactic acid 1.6, amylase 12, lipase 18. Blood gas was unremarkable. Urinalysis showed 100 urine protein, 500 urine glucose, 40 urine ketones, moderate urine blood, trace of leukocyte esterase, 20 to 30 urine RBCs and 30 to 40 urine WBCs. Blood cultures were drawn, the patient was given fluids as well as worked up and chest x-ray shows cardiac silhouette normal in size, no lobar consolidations present, no pleural effusion or pneumothorax, thoracic spondylosis. Her abdominal and pelvis CT showed findings of bilateral kidneys concerning for pyelonephritis, minimal dilation of the right renal collecting system and ureter which could relate to a recently passed stone. No obstructing stone is visualized, however. She was also given some antinausea medicine as well as 7 units of Humalog insulin. I was called for hospital admission. LABORATORY: White count 28,300 on admission. It did go up to a maximum of 31,200, but prior to discharge had normalized to 10,800. She did have a left shift and actually had 21% bands that resolved and was returning to baseline levels. Hemoglobin and hematocrit were stable. Discharge hemoglobin 9.5, hematocrit 29.0. Platelet count 214,000. Blood gas analysis was within normal limits on admission. Chemistry on admission showed sodium 129, blood sugar 576. It did go up to a maximum of 645 with sodium correcting to 135, potassium 4.6, carbon dioxide 20, BUN 44, creatinine 1.70. Liver functions all within normal limits. Lipase normal. After initiation of treatment with sliding scale, blood sugars were better controlled. Electrolytes with potassium 4.2, sodium 132 and normalized prior to discharge with sodium 140, potassium 3.9. Blood sugars were ranging between 162 and 206 prior to discharge. Magnesium 2.0. Urinalysis on admission showed 100 protein, 500 glucose, 40 ketones, mild amount of blood, trace leukocyte esterase with RBCS 20 to 30, WBCs 30 to 40, 1+ bacteria. Urinalysis after catheter was placed showed 100 protein, small amount of blood, negative ketones, negative glucose and microscopic revealed 5 to 10 RBCs, 10 to 20 WBCs, 2+ bacteria, 5 to 10 epithelials. MICROBIOLOGY: Final urine culture showed pansensitive E. coli. She had blood cultures that were positive in both aerobic and anaerobic bottles that was E. coli and pansensitive similar to the urine culture. She had two other sets of blood cultures that were negative. RADIOLOGY: In the Emergency Room prior to admission, she did have a abdominopelvic CT without contrast. Findings were concerning for bilateral pyelonephritis. There was an ultrasound of the kidneys completed as well after admission and per radiologic interpretation showed bilateral kidneys to be unremarkable. Lobulated contours are physiologic for this patient. Bilateral ureteral jets seen in the urinary bladder by Doppler. Findings were not measured. Please see those reports for details. HOSPITAL COURSE: Ms. Mijares was admitted for bilateral pyelonephritis secondary to E. coli that was pansensitive. She was started on Rocephin and meropenem. Once culture results came back with pansensitive E. coli, she was transitioned to Levaquin and prior to discharge, changed to oral ciprofloxacin. She responded well clinically to treatment and was no longer having fever within 72 hours of discharge. She had no complaints and was clinically stable enough to be discharged home. PLAN: Ms. Mijares was discharged on 09/30/18 with instructions to continue with outpatient management on antibiotics of ciprofloxacin for at least 14 days and followup with Dr. Mauricio as directed within the next week. She was to encourage fluids to prevent dehydration and resume all other medications as prior to hospitalization. She was given warnings to return to the hospital should she have any return of symptoms including fever or increasing pain. Diet at discharge was diabetic diet and to monitor blood sugars at least 3 times a day with fingersticks. Activity to increase as tolerated. She does have an appointment on 10/07/[address] at [address] Mauricio. Medications prescribed at discharge included ciprofloxacin 500 mg twice daily, #28. She will need a repeat urinalysis at followup and possible consideration for urology consultation at some point if needed given that she had bilateral pyelonephritis. At followup, if the patient is not showing expected clinical response with Dr. Romero to fully followup on completion of treatment for gram negative bacteremia secondary to pansensitive E. coli. DISCHARGE CONDITION: Stable and improving. DISPOSITION: She was discharged to care of family members. #[id number] [facility]
== END 2018-09-30 14:05 | disposition home or self-care (01) | DRG 872 ==
LOC: ER 10:29 → MS 17:07
PROVIDERS: ADMIT Nurse Practitioner Acute Care; ATTEND Nurse Practitioner Family
PROC: BW211ZZ Computerized Tomography (CT Scan) of Abdomen and Pelvis using Low Osmolar Contrast (ICD-10-PCS; principal; 2018-09-26)
DX: A41.51 Sepsis due to Escherichia coli [E. coli] (principal); N12 Tubulo-interstitial nephritis, not specified as acute or chronic; N17.9 Acute kidney failure, unspecified; E10.65 Type 1 diabetes mellitus with hyperglycemia; R51 Headache; K59.00 Constipation, unspecified; I25.10 Atherosclerotic heart disease of native coronary artery without angina pectoris; I10 Essential (primary) hypertension; E78.5 Hyperlipidemia, unspecified; E03.9 Hypothyroidism, unspecified; F41.9 Anxiety disorder, unspecified; F32.9 Major depressive disorder, single episode, unspecified; K21.9 Gastro-esophageal reflux disease without esophagitis; E10.43 Type 1 diabetes mellitus with diabetic autonomic (poly)neuropathy; G62.9 Polyneuropathy, unspecified; Z79.4 Long term (current) use of insulin; Z95.5 Presence of coronary angioplasty implant and graft; Z88.5 Allergy status to narcotic agent; Z88.8 Allergy status to other drugs, medicaments and biological substances; Z79.899 Other long term (current) drug therapy

== ENCOUNTER 2018-10-13 10:44 | Emergency (ER) | payer MEDICARE, OTHER ==
[2018-10-13] MEDS ORDERED: SODIUM CHLORIDE 0.9% 1000ML 1,000 ML IVS ONE (11:11)
--- NOTE | 2018-10-13 11:29 | RAD ---
EXAM DESCRIPTION: Chest,1 View CLINICAL HISTORY: 63 years Female, orthostasis COMPARISON: Previous study September 26, 2018 TECHNIQUE: AP portable chest. FINDINGS: Heart size is prominent with normal pulmonary vascularity. No consolidating infiltrate. No pulmonary mass or worrisome nodule. No pneumothorax or pleural effusion. Bones are unremarkable. IMPRESSION: No acute process is identified in the chest. Electronically signed by: Jassi Manning MD 10/13/2018 11:27 AM CDT
[2018-10-13] MEDS ORDERED: MAGNESIUM SULFATE PREMIX 2GM 2 GM in PREMIX BAG 1 BAG IVPB ONE (12:20)
[2018-10-13] MEDS ORDERED: MAGNESIUM SULFATE PREMIX 2GM 50 ML IVPB ONE (12:40)
--- NOTE | 2018-10-13 13:29 | ED.PDOC ---
History of Present Illness - General Chief Complaint: General Stated Complaint: dizziness, nausea, headache Time Seen by Provider: 10/13/18 10:49 Source: patient Exam Limitations: no limitations - History of Present Illness Initial Comments: the patient is a 63-year-old female presenting to emergency room secondary to a feeling of weakness and dizziness and fatigue this morning after she got up. The patient was recently in the hospital for urosepsis. She has been out of the hospital for about a week and she just completed her antibiotics yesterday. No nausea or vomiting. No syncope. No altered mental status. No headache. No chest pain. No shortness of breath. No abdominal pain. No new urinary symptoms. The patient has recently restartedher Exforge that she had already been off of for about 3 months. Timing/Duration: 24 hours Severity: mild Improving Factors: nothing Worsening Factors: nothing Associated Symptoms: denies symptoms Allergies/Adverse Reactions: Allergies Codeine Allergy (Verified 09/26/18 11:39) Home Medications: Ambulatory Orders ALPRAZolam [Xanax] 0.5 mg PO PRN PRN 12/31/14 B-Complex Vitamins [B Complex] 1 cap PO DAILY 12/31/14 Levothyroxine Sodium [Synthroid] 50 mcg PO DAILY 12/31/14 Raloxifene HCl [Evista] 60 mg PO DAILY 12/31/14 Insulin Aspart [Novolog Flexpen] 100 unit SC PRN PRN 09/26/18 Insulin Degludec [Tresiba] 24 unit SC DAILY 09/26/18 Tizanidine HCl [Zanaflex] 8 mg PO BEDTIME PRN 09/26/18 Vortioxetine HBr [Trintellix] 20 mg PO BEDTIME 09/26/18 Zolpidem Tartrate [Ambien Cr] 12.5 mg PO BEDTIME 09/26/18 Exforge 10-320 mg 1 tablet PO DAILY 10/13/18 Review of Systems - Review of Systems Constitutional: States: malaise EENTM: States: no symptoms reported Respiratory: States: no symptoms reported Cardiology: States: no symptoms reported Gastrointestinal/Abdominal: States: no symptoms reported Genitourinary: States: no symptoms reported Musculoskeletal: States: no symptoms reported Skin: States: no symptoms reported Neurological: States: see HPI Endocrine: States: no symptoms reported Hematologic/Lymphatic: States: no symptoms reported All other Systems: No Change from Baseline Past Medical History (General) - Patient Medical History Hx Seizures: No Hx Stroke: No Hx Dementia: No Hx Asthma: No Hx of COPD: No Hx Cardiac Disorders: Yes - stent x 2 Hx Congestive Heart Failure: No Hx Pacemaker: No Hx Hypertension: Yes Hx Thyroid Disease: Yes Hx Diabetes: Yes Hx Gastroesophageal Reflux: Yes Hx Renal Disease: No Hx Cancer: No Hx of HIV: No Hx Hepatitis C: No Hx MRSA: No Surgical History: appendectomy, other - Vaccination History Hx Tetanus, Diphtheria Vaccination: Yes Hx Influenza Vaccination: Yes Hx Pneumococcal Vaccination: Yes - 2018 - Social History Hx Tobacco Use: No Hx Chewing Tobacco Use: No Hx Alcohol Use: No Hx Substance Use: No Hx Substance Use Treatment: No Hx Depression: Yes Hx Physical Abuse: No Hx Emotional Abuse: No Hx Suspected Abuse: No - Female History Patient : No Family Medical History - Family History Mother Family History: Unknown Living Status: Age at (years of age): 54 Cause of : Squamous Cell Carcinoma 1981 Hx Family Hypertension: Yes Hx Family Cancer: Yes Physical Exam - Physical Exam General Appearance: Alert, Comfortable, No apparent distress Eye Exam: bilateral normal Ears, Nose, Throat: hearing grossly normal, normal ENT inspection Neck: full range of motion, supple Respiratory: lungs clear, normal breath sounds, no respiratory distress, no accessory muscle use Cardiovascular/Chest: normal peripheral pulses, regular rate, rhythm, no edema Peripheral Pulses: radial,right: 2+, radial,left: 2+, dorsalis pedis,right: 2+, dorsalis pedis,left: 2+ Gastrointestinal/Abdominal: non tender, soft Rectal Exam: deferred Back Exam: no CVA tenderness, no vertebral tenderness Extremity: normal range of motion, non-tender, normal inspection, no pedal edema, normal capillary refill Neurologic: research assistant II-XII nml as tested, alert, normal mood/affect, oriented x 3 Skin Exam: normal color Comments: Vital Signs - 24 hr 10/13/18 10/13/18 10/13/18 10:57 10:58 10:59 Temperature 95.8 F L Pulse Rate [ 48 L 53 L 53 L left brachial] Respiratory 16 18 18 Rate Blood Pressure 106/49 96/45 96/45 [left brachial] O2 Sat by Pulse 99 100 100 Oximetry 04/10/13/18 10/13/18 11:00 11:07 12:00 Temperature 95.8 F L Pulse Rate [ 51 L 53 L 60 left brachial] Respiratory 18 16 14 Rate Blood Pressure 80/41 101/51 109/39 [left brachial] O2 Sat by Pulse 100 99 93 L Oximetry 10/13/18 12:30 Temperature Pulse Rate [ 61 left brachial] Respiratory 16 Rate Blood Pressure 110/54 [left brachial] O2 Sat by Pulse 93 L Oximetry Progress - Progress Progress: 10/13/18 13:32 the patient is a 63-year-old female presenting with symptoms that are most consistent with orthostasis. The patient has significantly tilted positive here. She did receive a liter of IV fluids. She also received a dose of magnesium for hypomagnesemia. The patient does have some mild bradycardia that does not compensate for her blood pressure drop when standing. She is on Exforge at this time. For now I'm going to have her hold the medication and record her blood pressures 3 times daily for the next few days. She needs to contact her primary care doctor towards the end of the week to see if she needs to be restarted on some form of a blood pressure medication. At this point given the severity of her symptoms, the risk outweighs the benefit of this medication at this time. The patient does have very mild hypothermia which may be a chronic issue for her. This needs to be followed up with her primary care doctor, as does the mild sinus bradycardia. Thyroid function appears to be fairly normal at this time based on the TSH. No clinical evidence of sepsis at this time. Follow-up with primary care doctor later this week. ER warnings were given. - Results/Orders Results/Orders: Vital Signs - 24 hr 10/13/18 10/13/18 10/13/18 10:57 10:58 10:59 Temperature 95.8 F L Pulse Rate [ 48 L 53 L 53 L left brachial] Respiratory 16 18 18 Rate Blood Pressure 106/49 96/45 96/45 [left brachial] O2 Sat by Pulse 99 100 100 Oximetry 10/13/18 10/13/18 10/13/18 11:00 11:07 12:00 Temperature 95.8 F L Pulse Rate [ 51 L 53 L 60 left brachial] Respiratory 18 16 14 Rate Blood Pressure 80/41 101/51 109/39 [left brachial] O2 Sat by Pulse 100 99 93 L Oximetry 10/13/18 12:30 Temperature Pulse Rate [ 61 left brachial] Respiratory 16 Rate Blood Pressure 110/54 [left brachial] O2 Sat by Pulse 93 L Oximetry 10/13/18 10:56 Vital Signs-Tilt PRN tilt positive by blood pressure drop of 25 points down to 80/40 with a failure of heart rateto rise significantly. 10/13/18 11:15 EKG STAT sinus bradycardia at 51 bpm with occasional PVCs. There is a Q-wave in lead 3. No definitive ST segment or T-wave changes consistent with acute ischemia. Normal QT interval. Normal axis. 10/13/18 Lunch 2000 Calorie ADA Diet Laboratory Results - last 24 hr 10/13/18 10/13/18 10/13/18 11:17 11:50 11:50 WBC 7.9 RBC 3.71 L Hgb 10.4 L Hct 32.0 L MCV 86.2 MCH 28.0 MCHC 32.6 L RDW 14.3 Plt Count 320 MPV 8.3 Absolute Neuts (auto) 5.40 Absolute Lymphs (auto) 1.50 Absolute Monos (auto) 0.70 Absolute Eos (auto) 0.20 Absolute Basos (auto) 0.20 H Neutrophils % 68.0 Lymphocytes % 19.0 L Monocytes % 8.5 Eosinophils % 2.1 Basophils % 2.4 H Sodium 135 Potassium 3.7 Chloride 100 L Carbon Dioxide 24 Anion Gap 14.7 BUN 16 Creatinine 1.21 BUN/Creatinine Ratio 13.2 POC Glucose Random Glucose 83 Serum Osmolality 270.4 L Lactic Acid Calcium 9.7 Magnesium 1.6 L Total Bilirubin 0.4 AST 28 ALT 20 Alkaline Phosphatase 36 L Creatine Kinase 41 CK-MB (CK-2) 1.0 CK-MB (CK-2) % Not Reportable Troponin I < 0.02 B-Natriuretic Peptide 34.2 Serum Total Protein 6.8 Albumin 3.6 Globulin 3.2 Albumin/Globulin Ratio 1.1 TSH 1.91 Urine Color Yellow Urine Appearance Clear Urine pH 5.0 Ur Specific [place] 1.020 Urine Protein Negative Urine Glucose (UA) Negative Urine Ketones Negative Urine Blood Negative Urine Nitrite Negative Urine Bilirubin Negative Urine Urobilinogen 0.2 Ur Leukocyte Esterase Trace H Urine RBC 3-5 H Urine WBC 3-5 H Ur Epithelial Cells 1-3 Amorphous Sediment 2+ Urine Bacteria 1+ Hyaline Casts 0-1 Urine Mucus Moderate 10/13/18 10/13/18 11:50 13:02 WBC RBC Hgb Hct MCV MCH MCHC RDW Plt Count MPV Absolute Neuts (auto) Absolute Lymphs (auto) Absolute Monos (auto) Absolute Eos (auto) Absolute Basos (auto) Neutrophils % Lymphocytes % Monocytes % Eosinophils % Basophils % Sodium Potassium Chloride Carbon Dioxide Anion Gap BUN Creatinine BUN/Creatinine Ratio POC Glucose 59 L Random Glucose Serum Osmolality Lactic Acid 1.5 Calcium Magnesium Total Bilirubin AST ALT Alkaline Phosphatase Creatine Kinase CK-MB (CK-2) CK-MB (CK-2) % Troponin I B-Natriuretic Peptide Serum Total Protein Albumin Globulin Albumin/Globulin Ratio TSH Urine Color Urine Appearance Urine pH Ur Specific [place] Urine Protein Urine Glucose (UA) Urine Ketones Urine Blood Urine Nitrite Urine Bilirubin Urine Urobilinogen Ur Leukocyte Esterase Urine RBC Urine WBC Ur Epithelial Cells Amorphous Sediment Urine Bacteria Hyaline Casts Urine Mucus Departure - Departure Clinical Impression: Orthostasis, Sinus bradycardia, Hypothermia not due to cold exposure, Hypomagnesemia Disposition: Discharge to Home or Self Care Condition: Fair Departure Forms: ED Discharge - Pt. Copy, Patient Portal Self Enrollment Instructions: Orthostatic Hypotension (DC) Diet: diabetic diet Activity: increase activity as tolerated Referrals: Wali Mauricio MD [Primary Care Provider] - 1-2 Weeks Home Medications: Ambulatory Orders ALPRAZolam [Xanax] 0.5 mg PO PRN PRN 12/31/14 B-Complex Vitamins [B Complex] 1 cap PO DAILY 12/31/14 Levothyroxine Sodium [Synthroid] 50 mcg PO DAILY 12/31/14 Raloxifene HCl [Evista] 60 mg PO DAILY 12/31/14 Insulin Aspart [Novolog Flexpen] 100 unit SC PRN PRN 09/26/18 Insulin Degludec [Tresiba] 24 unit SC DAILY 09/26/18 Tizanidine HCl [Zanaflex] 8 mg PO BEDTIME PRN 09/26/18 Vortioxetine HBr [Trintellix] 20 mg PO BEDTIME 09/26/18 Zolpidem Tartrate [Ambien Cr] 12.5 mg PO BEDTIME 09/26/18 Exforge 10-320 mg 1 tablet PO DAILY 10/13/18 Additional Instructions: the patient is a 63-year-old female presenting with symptoms that are most consistent with orthostasis. The patient has significantly tilted positive here. She did receive a liter of IV fluids. She also received a dose of magnesium for hypomagnesemia. The patient does have some mild bradycardia that does not compensate for her blood pressure drop when standing. She is on Exforge at this time. For now I'm going to have her hold the medication and record her blood pressures 3 times daily for the next few days. She needs to contact her primary care doctor towards the end of the week to see if she needs to be restarted on some form of a blood pressure medication. At this point given the severity of her symptoms, the risk outweighs the benefit of this medication at this time. The patient does have very mild hypothermia which may be a chronic issue for her. This needs to be followed up with her primary care doctor, as does the mild sinus bradycardia. Thyroid function appears to be fairly normal at this time based on the TSH. No clinical evidence of sepsis at this time. Follow-up with primary care doctor later this week. ER warnings were given.
[2018-10-13] MEDS ORDERED: ONDANSETRON INJ 4 MG/2 ML VIAL IV ONE (14:08)
[2018-10-13 14:27] VITALS: BP 121/57; O2SAT 95
[2018-10-13 14:33] VITALS: TEMP 98.7
== END 2018-10-13 14:33 | disposition home or self-care (01) ==
LOC: ER 10:44
DX: I95.1 Orthostatic hypotension (principal); R00.1 Bradycardia, unspecified; R68.0 Hypothermia, not associated with low environmental temperature; E83.42 Hypomagnesemia; I51.9 Heart disease, unspecified; I10 Essential (primary) hypertension; E07.9 Disorder of thyroid, unspecified; E11.9 Type 2 diabetes mellitus without complications; K21.9 Gastro-esophageal reflux disease without esophagitis; F32.9 Major depressive disorder, single episode, unspecified; Z95.5 Presence of coronary angioplasty implant and graft; Z79.899 Other long term (current) drug therapy; Z79.4 Long term (current) use of insulin; Z88.5 Allergy status to narcotic agent
CPT/HCPCS: 36415; 36416; 71045; 80053; 81001; 82550; 82553; 82948; 83605; 83735; 83880; 84443; 84484; 85025; 93005; J2405; J3475; J7030

== ENCOUNTER → 2018-11-25 | Outpatient (CLI) | payer MEDICARE, OTHER | LOC: GMAM 13:46 | PROVIDERS: ATTEND Family Medicine | DX: E03.9 Hypothyroidism, unspecified (principal); I10 Essential (primary) hypertension; E83.42 Hypomagnesemia; E10.9 Type 1 diabetes mellitus without complications ==

== ENCOUNTER → 2018-12-05 | Outpatient (CLI) | payer MEDICARE, OTHER ==
--- NOTE | 2018-12-10 15:50 | MAM ---
EXAM DESCRIPTION: 3D Screening BILATERAL : Digital Mammography. CLINICAL HISTORY: 63 years Female ANNUAL SCREENING . No complaints. No personal or family history of breast cancer. Childbirth. Postmenopausal. Taking HRT 5 or more years ago. Bilateral breast augmentation. Prior breast cyst aspiration and biopsy. Lifetime risk of developing breast cancer (Tyrer-Cuzick model)(%): 6.2. COMPARISON: 2-D digital screening bilateral mammography 05/02/2015. TECHNIQUE: Bilateral CC and MLO projection full-field images, with Toshia Implant Displacement digital tomosynthesis mammographic technique. Bilateral 2-D digital full-field images, MLO and CC projections, non-displaced. Bilateral digital 2-D full-field MLO images. With displacement. CAD not available for tomosynthesis or 2-D images. FINDINGS: The breast parenchymal density pattern is: Heterogeneously dense breast tissue, which may obscure small masses. No skin thickening or nipple retraction. Bilateral silicone breast implants retroglandular, with margins slightly lobulated. Bilateral axillary lymph nodes. Bilateral vascular calcifications. No neto free silicone bilaterally. No new focal, stellate mass or density, focal asymmetry , and no suspicious microcalcifications bilaterally. Stable mammograms compared to prior study. Taking into account, differences in mammographic technique. IMPRESSION: Benign exam. BIRAD CATEGORY: 2 BENIGN FINDINGS. RECOMMENDATIONS: FOLLOW UP: Routine digital bilateral mammographic screening, one year interval from November 2018. Written communication explaining the IMPRESSION and follow-up, will be mailed to the patient and referring health care provider. According to the [employer], yearly mammograms are recommended starting at age 40 and continuing as long as a woman is in good health. Any breast change noted on a breast self-exam should be reported promptly to the patient's healthcare provider. Breast MRI is recommended for women with an approximately 20-25% or greater lifetime risk of breast cancer, including women with a strong family history of breast or ovarian cancer and women who have been treated for Hodgkin's disease. A negative mammographic report should not delay tissue diagnosis in patients with significant clinical history or physical findings. Extremely dense breast tissue limits the sensitivity of digital mammography. Electronically signed by: Nakul Lugo MD 12/10/2018 3:48 PM CDT
== END ==
LOC: MAMMO 11:00
PROVIDERS: ATTEND Family Medicine
DX: Z12.31 Encounter for screening mammogram for malignant neoplasm of breast (principal)

== ENCOUNTER → 2019-05-04 | Outpatient (CLI) | payer MEDICARE, OTHER ==
--- NOTE | 2019-05-05 16:10 | MRI ---
EXAM DESCRIPTION: Lumbar Spine w/o Contrast : Magnetic Resonance Imaging. CLINICAL HISTORY: BACK PAIN COMPARISON: None. TECHNIQUE: Multiplanar, multiple standard sequences, non contrast MRI, lumbar spine. FINDINGS: L5-S1: The disc is well visualized on axial T2 series 501, image 3. Minimal disc desiccation. Posterior midline bulging touching the thecal sac. Mild canal narrowing. Bilateral facets are unremarkable with minimal flavum ligament thickening. Mild bilateral foraminal narrowing. L3 vertebral body with irregularity and depression of the superior endplate and minimal marrow edema of the endplate. 3 mm retropulsion of the superior endplate abutting the thecal sac. Posterior height of the vertebral body is 2.3 cm compared to 2.5 cm at L2 and anterior height 1.3 cm compared to 2.4 cm at L2. Schmorl's nodes in the posterior inferior L2 endplate. No marrow edema in the bilateral L3 pedicles. L2-L3: Posterior broad-based disc bulge with desiccation. Minimal facet arthrosis and bilateral posterior ligament thickening with AP canal diameter 9 mm. Subarticular recesses are patent. Disc bulge into the bilateral foramina with moderate narrowing more on the left. L4-L5: Disc desiccation with disc space maintained. Posterior broad-based bulge 4 mm. Bilateral thickened flavum ligaments. AP canal diameter 6.4 mm. Mild bilateral foraminal narrowing. L3-L4: Disc desiccation with disc space maintained. Tiny posterior broad-based bulge. Bilateral flavum ligament thickening and minimal facet arthrosis. Mild canal narrowing and bilateral foramina patent. L1-L2: Disc desiccation and disc space maintained. No significant bulging. Posterior elements unremarkable. Bilateral foramina are patent. T12-L1: Disc desiccation with disc space maintained. No significant bulging. Posterior elements unremarkable. Canal and foramina are patent. Conus terminates at this level. Minimal kyphosis L2-L3. Paravertebral soft tissues unremarkable.. Distal cord normal signal and caliber. Otherwise normal marrow signal in the remaining vertebral bodies and the posterior elements. Vertebral bodies are not compressed at any level. IMPRESSION: 1. Advanced spondylosis at the L2-L3 level along with compression injury of the superior L3 endplate. Borderline mild central canal stenosis at L2-L3 and bilateral foraminal narrowing but no stenosis. No injury of the posterior elements. 2. L4-L5 disc bulge with posterior element ligament thickening resulting in severe central canal stenosis but no foraminal stenosis. 3. Other discs with bulging and desiccation. Canal narrowing at multiple levels secondary to posterior ligament thickening more than disc bulging or facet hypertrophy. Electronically signed by: Nakul Lugo MD 05/05/2019 4:08 PM [facility]
== END | disposition home or self-care (01) ==
LOC: MRI 13:00
PROVIDERS: ATTEND Physical Medicine & Rehabilitation
DX: M54.5 Low back pain (principal)

== ENCOUNTER → 2019-07-30 | Outpatient (CLI) | payer MEDICARE, OTHER ==
--- NOTE | 2019-07-31 16:41 | MRI ---
EXAM DESCRIPTION: Lumbar Spine w/o Contrast : Magnetic Resonance Imaging. CLINICAL HISTORY: L3 COMPRESSION FX COMPARISON: MRI lumbar spine without contrast April 2019. TECHNIQUE: Multiplanar, multiple standard sequences, non contrast MRI, lumbar spine. FINDINGS: L3 vertebral body with depression of the superior endplate more to the left of midline in the right and also central depression with central superior Schmorl's node. Stable vertebral body height 2.3 cm stable. Anterior vertebral body height 1.6 cm stable. Mid vertebral body height 1.85 cm stable hyperintense T2 and FLAIR endplate reactive changes in the midline into the left of midline are stable. No marrow edema in the pedicles. 2 mm retropulsion of the posterior endplate stable. L5-S1: The disc is well visualized on axial T2 series 501, image 3. Minimal disc desiccation with disc space preserved. Minimal midline bulge and also small bulge to the right of midline abutting the right ventral thecal sac and the descending right S1 nerve above the lateral recess. Not as well seen on the prior study. Minimal degenerative hypertrophy of the facet joints and bilateral posterior flavum ligaments. AP canal diameter 11 mm. Bilateral mild foraminal narrowing. L4-L5: Disc desiccation and minimal posterior disc space bulge with hyperintense T2 annular fissure. Degenerative hypertrophy of the posterior elements impressing on the lateral thecal sac. Bilateral mild subarticular recess narrowing. AP canal diameter 6.5 mm. Stable since the prior study. Mild left foraminal narrowing and mild to moderate right foraminal narrowing also unchanged. L3-L4: Disc desiccation with minimal posterior bulge. Broad-based. Minimal disc space loss. Hypertrophic degenerative changes of the posterior elements. AP canal diameter 10 mm. Bilateral mild foraminal narrowing more left than right. L2-L3: Anterior disc space enlarged and posterior disc space narrowing with desiccated disc anterior bulging with the endplate spurs and fragments. Posterior midline and left paracentral bulge with minimal migration above the disc space on the left abutting the exiting left L2 nerve. Minimal narrowing of the bilateral subarticular recesses. Minimal degenerative hypertrophy of the posterior elements. AP canal diameter 8.5 mm. Stable since the prior study. L1-L2: Normal signal in the disc with disc space preserved. Hypertrophic degeneration posterior elements. Mild canal narrowing. Bilateral foramina patent. T12-L1: Normal signal in the disc. Disc space preserved. Posterior elements unremarkable. Canal and foramina are patent. Conus terminates at this level. No scoliosis. Paravertebral soft tissues unremarkable.. Distal cord normal signal and caliber. Otherwise normal marrow signal in the remaining vertebral bodies and the posterior elements. Remaining Vertebral bodies are not compressed. IMPRESSION: 1. Stable L3 vertebral body superior endplate fracture. No increase in retropulsion No canal stenosis. No foraminal stenosis above or below the vertebra. 2. Small posterior right side L5-S1 disc focal bulge or protrusion abutting the right S1 nerve above the lateral recess. Moderate canal stenosis. 3. Multifactorial moderate to severe central canal stenosis L4-L5, unchanged from the prior study. 4. Borderline mild central canal stenosis at L3-4 is multifactorial due to bulging disc and posterior elements. 5. Mild to moderate central canal stenosis at L2-L3. Disc is migrating above the disc space to the left abutting the descending left L2 nerve. No change from the prior study. Electronically signed by: Nakul Lugo MD 07/31/2019 4:39 PM [facility]
== END ==
LOC: MRI 11:00
PROVIDERS: ATTEND Physician Assistant
DX: M48.062 Spinal stenosis, lumbar region with neurogenic claudication (principal); S32.030D Wedge compression fracture of third lumbar vertebra, subsequent encounter for fracture with routine healing; M51.86 Other intervertebral disc disorders, lumbar region; M51.87 Other intervertebral disc disorders, lumbosacral region

== ENCOUNTER → 2019-11-11 | Outpatient (CLI) | payer MEDICARE, OTHER | LOC: GMAM 11:51 | PROVIDERS: ATTEND Family Medicine | DX: E03.9 Hypothyroidism, unspecified (principal); E10.9 Type 1 diabetes mellitus without complications; I10 Essential (primary) hypertension; E78.2 Mixed hyperlipidemia ==

== ENCOUNTER → 2019-12-16 | Outpatient (CLI) | payer MEDICARE, OTHER ==
--- NOTE | 2019-12-17 10:59 | US ---
EXAM DESCRIPTION: Breast,Right: Ultrasound. CLINICAL HISTORY: 64 yearsFemaleBREAST PAIN. Right breast silicone implant. Patient fell and landed on right breast. New sensation in the breast since trauma. Does not want to have mammogram at this time due to breast tenderness. COMPARISON: Bilateral screening digital breast tomosynthesis November 2018. TECHNIQUE: Transcutaneous scanning of the right breast utilizing carter-scale and Doppler modes. Scanning performed by the maintenance mechanic helper ; observation by Dr. Lugo. FINDINGS: The breast tissue is mostly fibroglandular tissues. Typical double line implant margin is visualized. Disc margin is incomplete anteriorly and hypoechoic-anechoic tissue in the lens shaped configuration between the implant capsule and the fibroglandular tissues. Increased echogenicity in some of the implant margin may represent calcifications. No vascularity. This could represent fluid, liquefying hematoma, hematoma, or implant material. Not typical for usual hypoechoic homogeneous echoes of silicone. IMPRESSION: BI-RADS CATEGORY: 0 - INCOMPLETE- Need additional imaging evaluation. RECOMMENDATIONS: FOLLOW-UP: Recall for additional imaging: Diagnostic right breast digital tomosynthesis when patient clinically stable without tenderness.. Written communication concerning the IMPRESSION and Follow-up, will be mailed to the patient and referring health care provider. Electronically signed by: Nakul Lugo MD 12/17/2019 10:57 AM CDT
== END ==
LOC: US 09:53
PROVIDERS: ATTEND Family Medicine
DX: N64.59 Other signs and symptoms in breast (principal)

== ENCOUNTER → 2020-05-04 | Outpatient (CLI) | payer MEDICARE, OTHER | LOC: GMAM 10:52 | PROVIDERS: ATTEND Family Medicine | DX: R30.0 Dysuria (principal) ==

== ENCOUNTER → 2020-06-03 | Outpatient (CLI) | payer MEDICARE, OTHER | LOC: GMAM 10:17 | PROVIDERS: ATTEND Family Medicine | DX: E03.9 Hypothyroidism, unspecified (principal); E78.5 Hyperlipidemia, unspecified ==

== ENCOUNTER 2020-07-30 10:09 | Emergency (ER) | payer MEDICARE, OTHER ==
[2020-07-30] MEDS ORDERED: HYDROcodone 5MG/APAP 325MG 1 EA TAB PO ONE (10:34)
--- NOTE | 2020-07-30 10:38 | ED.PDOC ---
History of Present Illness - General Chief Complaint: Trauma Stated Complaint: Chest wall pain Time Seen by Provider: 07/30/20 10:34 Source: patient, family Exam Limitations: no limitations - History of Present Illness Initial Comments: This is a 65-year-old female with history of diabetes, CAD, chronic back pain, presenting to the emergency department with left-sided chest wall pain that began 3 days ago. She states she was working with her horse in a barn and was pinned up against a metal railing. She states she felt a pop at that time and has had persistent pain since then. She reports marked pain with deep breathing and with movements. She denies any shortness of breath or fevers. She has been using incentive spirometry at home and has been taking tramadol without much improvement. She denies any abdominal pain. No other injuries. She does have a history of breast implants that she states have been "leaking" for several years, but has been not been able to follow-up with a plastic surgeon. She denies any other injuries. No blood thinners. Allergies/Adverse Reactions: Allergies Codeine Allergy (Verified 07/30/20 10:33) Other itching Statins Allergy (Verified 07/30/20 10:33) Home Medications: Ambulatory Orders ALPRAZolam [Xanax] 0.5 mg PO PRN PRN 12/31/14 Levothyroxine Sodium [Synthroid] 50 mcg PO DAILY 12/31/14 Raloxifene HCl [Evista] 60 mg PO DAILY 12/31/14 Insulin Degludec [Tresiba] 12 unit SC DAILY 09/26/18 Tizanidine HCl [Zanaflex] 8 mg PO BEDTIME PRN 09/26/18 Vortioxetine HBr [Trintellix] 20 mg PO BEDTIME 09/26/18 Zolpidem Tartrate [Ambien Cr] 12.5 mg PO BEDTIME 09/26/18 Amlodipine Besylate 10 mg PO DAILY 07/30/20 HYDROcodone 7.5MG/APAP 325MG [[place] 7.5/325] 1 tab PO Q6H PRN 5 Days #20 tab 07/30/20 Insulin Aspart (with Niacinami [Fiasp] 3 - 6 unit SC AC 07/30/20 Review of Systems - Review of Systems Constitutional: Denies: chills, fever EENTM: Denies: ear pain, nose congestion, throat pain Respiratory: Denies: cough, orthopnea, short of breath, wheezing Cardiology: States: chest pain. Denies: edema, palpitations Gastrointestinal/Abdominal: Denies: abdominal pain, constipation, diarrhea, nausea, vomiting Genitourinary: Denies: dysuria, hematuria, pain Musculoskeletal: Denies: joint pain, joint swelling, muscle pain, muscle stiffness Skin: Denies: lesions, rash Endocrine: States: no symptoms reported Hematologic/Lymphatic: States: no symptoms reported Past Medical History (General) - Patient Medical History Hx Seizures: No Hx Stroke: No Hx Dementia: No Hx Asthma: No Hx of COPD: No Hx Cardiac Disorders: Yes - stent x 2 Hx Congestive Heart Failure: No Hx Pacemaker: No Hx Hypertension: Yes Hx Thyroid Disease: Yes Hx Diabetes: Yes Hx Gastroesophageal Reflux: Yes Hx Renal Disease: No Hx Cancer: No Hx of HIV: No Hx Hepatitis C: No Hx MRSA: No - Vaccination History Hx Tetanus, Diphtheria Vaccination: Yes Hx Influenza Vaccination: Yes Hx Pneumococcal Vaccination: Yes - 2018 - Social History Hx Tobacco Use: No Hx Chewing Tobacco Use: No Hx Alcohol Use: No Hx Substance Use: No Hx Substance Use Treatment: No Hx Depression: Yes Hx Physical Abuse: No Hx Emotional Abuse: No Hx Suspected Abuse: No - Female History Patient : No Family Medical History - Family History Mother Family History: Unknown Living Status: Age at (years of age): 52 Cause of : Squamous Cell Carcinoma 1981 Hx Family Hypertension: Yes Hx Family Cancer: Yes Physical Exam - Physical Exam General Appearance: Alert, Comfortable Ears, Nose, Throat: normal ENT inspection, normal pharynx Neck: full range of motion, supple Respiratory: lungs clear, normal breath sounds, no respiratory distress, no accessory muscle use, other - Reproducible tenderness to the left lateral left anterior chest wall. There is no crepitus, no subcutaneous emphysema. Cardiovascular/Chest: normal peripheral pulses, regular rate, rhythm, no edema, no JVD Gastrointestinal/Abdominal: non tender, soft Back Exam: normal inspection, no CVA tenderness, no vertebral tenderness Extremity: normal range of motion, non-tender, normal inspection, other - No shoulder tenderness, no clavicle tenderness. There is old appearing bruising to the right upper arm, no underlying tenderness Neurologic: no motor/sensory deficits, alert, normal mood/affect Skin Exam: normal color, warm/dry Progress - Progress Progress: 07/30/20 11:29 Rechecked. Discussed x-ray findings and plan for discharge home. No respiratory distress, sats acceptable. Strict warnings given to return the emergency room for worsening pain, shortness of breath, fever, hemoptysis, or any other concerns. DDx: Rib fracture, contusion, pneumothorax MDM: Crush injury to chest wall 3 days ago, sats normal, vital signs normal. Pain tolerable with p.o. meds. No pneumothorax, patient has a fourth rib fracture, possible fifth rib fracture on the left. No indication for admission or trauma evaluation given remote nature of injury. Strict warnings given to return for worsening symptoms or any new injuries that need to be evaluated. Johnathan Triplett DO [facility] #[id number] - Results/Orders Results/Orders: EXAM: X-RAY, two views of the left ribs HISTORY: left chest wall injury. COMPARISON: Chest x-ray from 10/13/2018. TECHNIQUE: Two views of the left ribs FINDINGS: Fracture of the left fourth rib laterally. Possible fracture of the left fifth rib anteriorly. Grossly clear left lung. No pneumothorax or pleural effusion. IMPRESSION: Lateral left fourth rib fracture and possible left fifth rib fracture. Electronically signed by: Mayur Guzman MD 07/30/2020 11:04 AM Departure - Departure Clinical Impression: Left rib fracture Disposition: Discharge to Home or Self Care Condition: Good Departure Forms: ED Discharge - Pt. Copy, Patient Portal Self Enrollment Instructions: DI for Trauma, Rib Fracture (DC) Referrals: Wali Mauricio MD [Primary Care Provider] - 1-5 Days Prescriptions: HYDROcodone 7.5MG/APAP 325MG [[place] 7.5/325] 1 tab PO Q6H PRN 5 Days #20 tab PRN Reason: Moderate To Severe Pain Home Medications: Ambulatory Orders ALPRAZolam [Xanax] 0.5 mg PO PRN PRN 12/31/14 Levothyroxine Sodium [Synthroid] 50 mcg PO DAILY 12/31/14 Raloxifene HCl [Evista] 60 mg PO DAILY 12/31/14 Insulin Degludec [Tresiba] 12 unit SC DAILY 09/26/18 Tizanidine HCl [Zanaflex] 8 mg PO BEDTIME PRN 04/12/19 Vortioxetine HBr [Trintellix] 20 mg PO BEDTIME 09/26/18 Zolpidem Tartrate [Ambien Cr] 12.5 mg PO BEDTIME 09/26/18 Amlodipine Besylate 10 mg PO DAILY 07/30/20 HYDROcodone 7.5MG/APAP 325MG [[place] 7.5/325] 1 tab PO Q6H PRN 5 Days #20 tab 07/30/20 Insulin Aspart (with Niacinami [Fiasp] 3 - 6 unit SC AC 07/30/20
[2020-07-30 10:41] VITALS: TEMP 98.6
--- NOTE | 2020-07-30 11:05 | RAD ---
EXAM: X-RAY, two views of the left ribs HISTORY: left chest wall injury. COMPARISON: Chest x-ray from 10/13/2018. TECHNIQUE: Two views of the left ribs FINDINGS: Fracture of the left fourth rib laterally. Possible fracture of the left fifth rib anteriorly. Grossly clear left lung. No pneumothorax or pleural effusion. IMPRESSION: Lateral left fourth rib fracture and possible left fifth rib fracture. Electronically signed by: Mayur Guzman MD 07/30/2020 11:04 AM [facility]
[2020-07-30 11:42] VITALS: BP 157/71; O2SAT 95
== END 2020-07-30 11:37 | disposition home or self-care (01) ==
LOC: ER 10:09
DX: S22.32XA Fracture of one rib, left side, initial encounter for closed fracture (principal); F32.9 Major depressive disorder, single episode, unspecified; K21.9 Gastro-esophageal reflux disease without esophagitis; E11.9 Type 2 diabetes mellitus without complications; I10 Essential (primary) hypertension; I25.10 Atherosclerotic heart disease of native coronary artery without angina pectoris; E07.9 Disorder of thyroid, unspecified; Z95.5 Presence of coronary angioplasty implant and graft; Z79.899 Other long term (current) drug therapy; Z79.4 Long term (current) use of insulin; Z88.8 Allergy status to other drugs, medicaments and biological substances; Z88.5 Allergy status to narcotic agent; W23.0XXA Caught, crushed, jammed, or pinched between moving objects, initial encounter; Y93.K9 Activity, other involving animal care; Y92.71 Barn as the place of occurrence of the external cause